=== PATIENT | female | born 1980 | race Caucasian/White ===

== ENCOUNTER 2017-04-19 14:17 | Emergency (ER) | payer OTHER ==
[2017-04-19 14:23] VITALS: BMI 30.9
[2017-04-19 15:37] LABS: URINE APPEARANCE CLEAR; URINE BILIRUBIN NEGATIVE (NEGATIVE); URINE COLOR LTYELLOW; URINE GLUCOSE (UA) NEGATIVE (NEGATIVE); URINE KETONE NEGATIVE (NEGATIVE); URINE LEUK ESTERASE NEGATIVE (NEGATIVE); URINE NITRITE NEGATIVE (NEGATIVE); URINE PROTEIN NEGATIVE (NEGATIVE); URINE UROBILINOGEN NEGATIVE E.U./dl (0.2-1.0)
[2017-04-19 15:38] LABS: URINE BLOOD 1+ (NEGATIVE)
[2017-04-19 15:39] LABS: URINE RBC 1 /hpf (0-3)
[2017-04-19 15:49] LABS: BASOPHIL 0.2 % (0-2.0); EOSINOPHIL 2.4 % (0-4.5); MCH 29.9 pg (25.7-33.7); MCHC 34.5 g/dl (32.0-36.0); MEAN CELL VOLUME 86.7 fl (80-96); MEAN PLT VOLUME 8.4 fl (7.5-11.1); NEUTROPHILS 69.8 % (42.8-82.8); PLATELET COUNT 236 K/MM3 (134-434); WHITE BLOOD COUNT 10.2 K/mm3 (4.0-10.0)
[2017-04-19 16:24] LABS: ALBUMIN 4.1 g/dl (3.4-5.0); ALK PHOS 104 U/L (45-117); ANION GAP 11 (8-16); BILIRUBIN,TOTAL 0.3 mg/dL (0.2-1.0); CO2 26 mmol/L (21-32); CREATININE 0.7 mg/dL (0.55-1.02); GLUCOSE,RANDOM 96 mg/dL (74-106); SGOT/AST 15 U/L (15-37); SGPT/ALT 20 U/L (12-78); TOT PROT 7.9 g/dl (6.4-8.2)
--- NOTE | 2017-04-19 19:06 | PDOC ---
History of Present Illness - History of Present Illness Initial Comments: 04/19/17 19:20 Patient is a 37 year old female with significant medical hx of constipation and x 1 who is presenting to the ED with five days of abdominal pain. Patient complains of LLQ pain and suprapubic pain with some difficulty urinating and constipation. She denies any nausea or vomiting. The patient states that her last BM was this morning and that it was normal. Patient was seen today at [facility] where she received a urine and STD testing for chlamydia but did not receive her results. Denies fevers, chills, lower back pain, hematuria, or diarrhea. LNMP: 04/05/17, <Denise Bain - Last Filed: 04/19/17 19:20> <Ambreen Estrada - Last Filed: 04/19/17 19:35> - General Chief Complaint: Pain Stated Complaint: ABD PAIN, HX OF CONSTIPATION Time Seen by Provider: 04/19/17 16:33 Past History <Denise Bain - Last Filed: 04/19/17 19:20> - Past Medical History GI Disorders: Yes (CONSTIPATION) - Psycho/Social/Smoking Cessation Hx Anxiety: No Suicidal Ideation: No Smoking History: Never smoked Have you smoked in the past 12 months: No Information on smoking cessation initiated: No Hx Alcohol Use: No Drug/Substance Use Hx: No Substance Use Type: None <Ambreen Estrada - Last Filed: 04/19/17 19:35> - Past Medical History Allergies/Adverse Reactions: Allergies Allergy/AdvReac Type Severity Reaction Status Date / Time No Known Allergies Allergy Verified 04/19/17 14:19 Home Medications: Ambulatory Orders NK [No Known Home Medication] 04/19/17 Review of Systems - Review of Systems Comments:: 04/19/17 19:21 CONSTITUTIONAL: Absent: fever, chills, diaphoresis, generalized weakness, malaise, loss of appetite HEENT: Absent: rhinorrhea, nasal congestion, throat pain, throat swelling, difficulty swallowing, mouth swelling, ear pain, eye pain, visual changes CARDIOVASCULAR: Absent: chest pain, syncope, palpitations, irregular heart rate, lightheadedness , peripheral edema RESPIRATORY: Absent: cough, shortness of breath, dyspnea with exertion, orthopnea, wheezing, stridor, hemoptysis GASTROINTESTINAL: Present: LLQ pain, suprapubic pain, constipation Absent: abdominal distension, nausea, vomiting, diarrhea, constipation, melena, hematochezia GENITOURINARY: Present: difficulty urinating Absent: frequency, urgency, hematuria, flank pain, genital pain MUSCULOSKELETAL: Absent: myalgia, arthralgia, joint swelling SKIN: Absent: rash, itching, pallor HEMATOLOGIC/IMMUNOLOGIC: Absent: easy bleeding, easy bruising, lymphadenopathy, frequent infections ENDOCRINE: Absent: unexplained weight gain, unexplained weight loss, heat intolerance, cold intolerance NEUROLOGIC: Absent: headache, focal weakness or paresthesia, dizziness, unsteady gait, seizure, mental status changes, bladder or bowel incontinence. PSYCHIATRIC: Absent: anxiety, depression, suicidal or homicidal ideation, hallucinations <Denise Bain - Last Filed: 04/19/17 19:20> *Physical Exam - Vital Signs Last Vital Signs Temp Pulse Resp BP Pulse Ox 98.2 F 84 18 110/77 100 04/19/17 14:20 04/19/17 14:20 04/19/17 14:20 04/19/17 14:20 04/19/17 14:20 - Physical Exam Comments: 04/19/17 19:23 GENERAL: Well developed, well nourished. Awake and alert. No acute distress. HEENT: Normocephalic, atraumatic. PERRLA, EOMI. No conjunctival pallor. Sclera are non- icteric. Moist mucous membranes. Oropharynx is clear. NECK: Supple. Full ROM. No JVD. Carotid pulses 2+ and symmetric, without bruits. No thyromegaly. No lymphadenopathy. CARDIOVASCULAR: Regular rate and rhythm. No murmurs, rubs, or gallops. Distal pulses are 2+ and symmetric. PULMONARY: No evidence of respiratory distress. Lungs clear to auscultation bilaterally. No wheezing, rales or rhonchi. ABDOMINAL: Soft. LLQ tenderness. Non-distended. No rebound or guarding. No organomegaly. Normoactive bowel sounds. MUSCULOSKELETAL: Normal range of motion at all joints. No bony deformities or tenderness. No CVA tenderness. EXTREMITIES: No cyanosis. No clubbing. No edema. No calf tenderness. SKIN: Warm and dry. Normal capillary refill. No rashes. No jaundice. NEUROLOGICAL: Alert, awake, appropriate. Cranial nerves 2-12 intact. Normal speech. Gait is normal without ataxia. PSYCHIATRIC: Cooperative. Good eye contact. Appropriate mood and affect. PELVIC: Left adnexal tenderness. <Denise Bain - Last Filed: 04/19/17 19:20> - Vital Signs Last Vital Signs Temp Pulse Resp BP Pulse Ox 98.2 F 84 18 110/77 100 04/19/17 14:20 04/19/17 14:20 04/19/17 14:20 04/19/17 14:20 04/19/17 14:20 <Ambreen Estrada - Last Filed: 04/19/17 19:35> ED Treatment Course - LABORATORY CBC & Chemistry Diagram: 04/19/17 15:36 04/19/17 15:36 - ADDITIONAL ORDERS Additional order review: Laboratory Results 04/19/17 04/19/17 15:36 15:10 Sodium 140 Potassium 4.0 Chloride 103 Carbon Dioxide 26 Anion Gap 11 BUN 11 Creatinine 0.7 Creat Clearance w eGFR > 60 Random Glucose 96 Calcium 9.0 Total Bilirubin 0.3 AST 15 ALT 20 Alkaline Phosphatase 104 Total Protein 7.9 Albumin 4.1 Urine Color Ltyellow Urine Appearance Clear Urine pH 6.0 Ur Specific [place] 1.015 Urine Protein Negative Urine Glucose (UA) Negative Urine Ketones Negative Urine Blood 1+ H Urine Nitrite Negative Urine Bilirubin Negative Urine Urobilinogen Negative Ur Leukocyte Esterase Negative Urine RBC 1 Urine WBC None Ur Epithelial Cells Rare Urine HCG, Qual Negative 04/19/17 15:36 RBC 4.83 MCV 86.7 MCHC 34.5 RDW 13.0 MPV 8.4 Neutrophils % 69.8 Lymphocytes % 17.4 Monocytes % 10.2 Eosinophils % 2.4 Basophils % 0.2 - RADIOLOGY Radiograph Interpretation: 04/19/17 19:22 Pediatric Rn: (talita) Report Date: 04/19/2017 17:50:00 Report Status: Preliminary Begin of Report Content Referring Physician: Ambreen Estrada Patient Name: Ekta Parish THIS IS A PRELIMINARY REPORT FROM [facility] DATE OF SERVICE: 2017-04-19 17:50:23.0 IMAGES: 47 EXAM: US PELVIC COMPLETE US TRANSVAGINAL US DUPLEX PELVIS . REASON FOR EXAM: Pain lt side COMPARISON: None FINDINGS: The anteverted uterus is normal in echotexture and without discrete fibroids or mass. The uterus measures 7.1 x 4.1 x 4.9 cm. The endometrial stripe is normal for age at 7 mm. There is no free fluid or suspicious adnexal mass. The ovaries are sonographically unremarkable except for a complex probable hemorrhagic cyst in the left ovary that measures 2.1 x 1.4 x 1.4 cm. The right ovary measure 3.5 x 2.3 x 2.1 cm and the left ovary measures 3.5 x 2.8 x 3.2 cm Bilateral ovarian arterial and venous vascular doppler flow detected. IMPRESSION: No free fluid or suspicious pelvic mass. No evidence of ovarian torsion. 2 cm complex hemorrhagic left ovarian cyst. Consider follow up in 4-6 weeks to reevaluate. No discrete uterine fibroids. THIS DOCUMENT HAS BEEN ELECTRONICALLY SIGNED Yashira Diaz D.O. 04/19/2017 19:00 JUDIE Mccurdy Please call Imaging Facility Environmental Technician [phone] ([phone]) with questions. End of Report Content <Denise Bain - Last Filed: 04/19/17 19:20> - LABORATORY CBC & Chemistry Diagram: 04/19/17 15:36 04/19/17 15:36 - ADDITIONAL ORDERS Additional order review: Laboratory Results 04/19/17 04/19/17 15:36 15:10 Sodium 140 Potassium 4.0 Chloride 103 Carbon Dioxide 26 Anion Gap 11 BUN 11 Creatinine 0.7 Creat Clearance w eGFR > 60 Random Glucose 96 Calcium 9.0 Total Bilirubin 0.3 AST 15 ALT 20 Alkaline Phosphatase 104 Total Protein 7.9 Albumin 4.1 Urine Color Ltyellow Urine Appearance Clear Urine pH 6.0 Ur Specific [place] 1.015 Urine Protein Negative Urine Glucose (UA) Negative Urine Ketones Negative Urine Blood 1+ H Urine Nitrite Negative Urine Bilirubin Negative Urine Urobilinogen Negative Ur Leukocyte Esterase Negative Urine RBC 1 Urine WBC None Ur Epithelial Cells Rare Urine HCG, Qual Negative 04/19/17 15:36 RBC 4.83 MCV 86.7 MCHC 34.5 RDW 13.0 MPV 8.4 Neutrophils % 69.8 Lymphocytes % 17.4 Monocytes % 10.2 Eosinophils % 2.4 Basophils % 0.2 - RADIOLOGY Radiology Studies Ordered: Category Date Time Status ABDOMEN-KUB FLAT PLATE [RAD] Stat Radiology 04/19/17 17:04 Taken TRANSVAGINAL ULTRASOUND US [US] Stat Ultrasound 04/19/17 17:08 Taken <Ambreen Estrada - Last Filed: 04/19/17 19:35> *DC/Admit/Observation/Transfer - Attestations Scribe Attestion: 04/19/17 19:24 Documentation prepared by Denise Bain, acting as medical assistant float for Ambreen Estrada MD. <Denise Bain - Last Filed: 04/19/17 19:20> <Ambreen Estrada - Last Filed: 04/19/17 19:35> Diagnosis at time of Disposition: Hemorrhagic ovarian cyst - Discharge Dispostion Disposition: HOME Condition at time of disposition: Stable - Referrals Referrals: Paradise Logan MD [Primary Care Provider] - - Patient Instructions Printed Discharge Instructions: DI for Ovarian Cyst Additional Instructions: PLEASE FOLLOW UP WITH YOUR VENDING MACHINE COLLECTOR AND HAVE A REPEAT ULTRASOUND IN 4-6 WEEKS Print Language: ERITREAN
[2017-04-19 19:52] VITALS: BP 106/72; PULSE 86; TEMP 98.3
== END 2017-04-19 19:52 | disposition home or self-care (01) ==
LOC: JER 14:17
DX: N83.202 Unspecified ovarian cyst, left side (principal)
CPT/HCPCS: 36415; 74000-TC; 76830-TC; 80053; 81003; 81015; 84703; 85025; 87086; 99284-25